=== PATIENT | female | born 1995 | race Caucasian/White ===

== ENCOUNTER 2019-07-29 00:04 | Emergency (ER) | payer MEDICAID ==
[~2019-07-29] VITALS: Ht 157.5 cm; Wt 88.5 kg
[2019-07-29 00:38] VITALS: BP_SYST 132
[2019-07-29] MEDS ORDERED: PREN1TAB81 PO (00:43)
[2019-07-29 01:09] LABS: BILIRUBIN,URINE NEGATIVE (NEGATIVE); BLOOD, URINE 3+ (NEGATIVE); CLARITY/URINE CLEAR (CLEAR); COLOR,URINE YELLOW (YELLOW); GLUCOSE,URINE NEGATIVE (NEGATIVE); KETONES,URINE NEGATIVE (NEGATIVE); LEUKOCYTE ESTERASE ,URINE 1+ (NEGATIVE); NITRITE, URINE NEGATIVE (NEGATIVE); PROTEIN URINE NEGATIVE (NEGATIVE); UROBILINOGEN,URINE 0.2 (0.2-1.0)
[2019-07-29] MEDS ORDERED: NACL 0.9% 1,000 ML IV ONE (01:45)
[2019-07-29 01:54] LABS: BACTERIA,URINE MANY /HPF (None Seen)
[2019-07-29 02:23] LABS: BASOPHILS # (AUTO) 0.1 K/uL (0.0-0.2); EOSINOPHILS # (AUTO) 0.3 K/uL (0.0-0.4); EOSINOPHILS % (AUTO) 2.9 % (0.0-4.0); HEMATOCRIT 27.6 % (36-48); HEMOGLOBIN 8.4 g/dL (12.0-16.0); LYMPHOCYTES # (AUTO) 2.9 K/uL (1.0-5.5); LYMPHOCYTES % (AUTO) 29.9 % (20.5-51.5); MEAN CORPUSCULAR HEMOGLOBIN 17 pg (27-31); MEAN CORPUSCULAR HGB CONC 30 % (32-36); MEAN CORPUSCULAR VOLUME 57 fL (79.0-98.0); MONOCYTES # (AUTO) 0.8 K/uL (0.0-1.0); NEUTROPHILS # (AUTO) 5.7 K/uL (1.8-7.7); NEUTROPHILS % (AUTO) 58.2 % (40.0-70.0); PLATELET COUNT (AUTO) 451 K/uL (130-430); RED BLOOD CELL COUNT(AUTO) 4.86 MIL/uL (4.2-6.2); WHITE BLOOD COUNT (AUTO) 9.7 K/uL (4.8-10.8)
--- NOTE | 2019-07-29 02:30 | NUR ---
Pt presents to ER with c/o vaginal bleeding. Pt states "I think I'm like 7 weeks ." Pt states at approximately 10am, pt felt "strong cramping" in her abdomen. Pt states at approximately 11:30 pm she got light headed and then went to the bathroom and noticed "underwear was soaked in blood." Pt states she is . When asked how far along, pt states, "I think 7 weeks." Pt states first . Pt states she has gone to primary doctor and gotten blood work and urine done but has not gotten a OBGYN. Upoin inspection, pt has light bleeding and light pink in color. Will continue to monitor.
--- NOTE | 2019-07-29 02:30 | NUR ---
Pt ambulatory to bed 8 for evaluation
--- NOTE | 2019-07-29 02:37 | NUR ---
Pt to ultasound accompanied by tech
--- NOTE | 2019-07-29 03:46 | NUR ---
ER Dr. Alfred at bedside examining patient.
[2019-07-29] MEDS ORDERED: cefTRIAXone 1 GM IVPB PREMIX 50 ML IV ONE (04:00)
[2019-07-29] MEDS ORDERED: ACETAMINOPHEN 500 MG TABLET PO ONE (04:00)
--- NOTE | 2019-07-29 04:20 | NUR ---
# 18 gauge angiocath placed to right hand. Use of asceptic technique. Opsite placed over site. Blood return noted. Flushed with 10 cc of normal saline. No evidence of infiltration noted. Patient tolerated well.
--- NOTE | 2019-07-29 05:46 | NUR ---
ER Dr. Alfred at bedside explaining results to patient.
[2019-07-29 07:20] VITALS: BP_SYST 130
--- NOTE | 2019-07-29 07:20 | NUR ---
Pt request off work note for being in ER. MD Alfred notified. Dr. Alfred accepted and wrote off work note.
--- NOTE | 2019-07-29 07:20 | NUR ---
Patient given written and verbal discharge instructions and verbalizes understanding. ER MD discussed with patient the results and treatment provided. Patient in stable condition. ID arm band removed. IV catheter removed intact and dressing applied, no active bleeding. Rx of Keflex given. Patient educated on pain management and to follow up with PMD. Pain Scale 0/10. Opportunity for questions provided and answered. Medication side effect fact sheet provided.
[2019-07-29 13:54] LABS: RED CELL DISTRIBUTION WIDTH 24.9 % (9.0-15.0)
== END 2019-07-29 07:20 | disposition home or self-care (01) ==
LOC: SED 00:04
DX: O23.41 Unspecified infection of urinary tract in pregnancy, first trimester (principal); Z3A.01 Less than 8 weeks gestation of pregnancy; Z79.899 Other long term (current) drug therapy
CPT/HCPCS: 36415; 76801; 76817; 81000; 81025; 84702; 85025; 87086; 96365; 99284; J0696; J7030

== ENCOUNTER 2024-02-21 07:03 | Day surgery (SDC) | payer MEDICAID ==
[~2024-02-21] VITALS: Ht 157.5 cm; Wt 97.5 kg
[~2024-02-21 07:03] MED LIST: PREN1TAB81 PO
[2024-02-21 07:46] LABS: HCG,QUAL RESULT NEGATIVE (NEGATIVE)
[2024-02-21] MEDS ORDERED: MIDAZOLAM HCL 5 MG/5 ML VIAL ONE (07:57)
[2024-02-21] MEDS ORDERED: MEPERIDINE 100 MG INJ. 100 MG/ML VIAL ONE (07:57)
[2024-02-21] MEDS ORDERED: BENZOCAINE 20% 0.5mL UD SPRAY MM ONE (09:04)
[2024-02-21 12:12] VITALS: O2SAT 97
[2024-02-21 16:31] VITALS: BP_SYST 101; PULSE 75; RESP 18
== END 2024-02-21 10:28 | disposition home or self-care (01) ==
LOC: SDS 07:03 → SMU 07:03 → SDS 10:28
PROVIDERS: ATTEND Internal Medicine
DX: K21.00 Gastro-esophageal reflux disease with esophagitis, without bleeding (principal); K29.50 Unspecified chronic gastritis without bleeding; B96.81 Helicobacter pylori [H. pylori] as the cause of diseases classified elsewhere; D64.9 Anemia, unspecified; R11.2 Nausea with vomiting, unspecified; K31.89 Other diseases of stomach and duodenum; Z88.8 Allergy status to other drugs, medicaments and biological substances; Z79.899 Other long term (current) drug therapy
CPT/HCPCS: 43239; 84703; 88305; 88312; 88313; 99152; G0378; J2250; J2175